=== PATIENT | male | born 1985 | race Asian ===

== ENCOUNTER 2021-08-17 15:45 | Emergency (ER) | payer BC ==
[~2021-08-17 15:45] MED LIST: AUGMENTIN 875-1 EACH PO; MEDROL DOSEPAK 24 MG PO; PROVENTIL HFA6.7 GM INH
[2021-08-17] MEDS ORDERED: DELSYM30 MG/5 ML PO (19:17)
[2021-08-17] MEDS ORDERED: FLONASE 0.05% N16 GM (19:17)
[2021-08-17] MEDS ORDERED: IBUPROFEN600 MG PO (19:17)
== END 2021-08-17 19:25 | disposition home or self-care (01) ==
LOC: ER1 15:45
DX: J06.9 Acute upper respiratory infection, unspecified (principal); F17.200 Nicotine dependence, unspecified, uncomplicated; Z20.822 Contact with and (suspected) exposure to COVID-19
CPT/HCPCS: 0240U; 99283